=== PATIENT | female | born 1960 | race Caucasian/White ===

== ENCOUNTER 2020-08-14 10:01 | Outpatient (CLI) | payer BC, SELFPAY ==
--- NOTE | ~2020-08-14 | MM_ITS ---
EXAMINATION: MM screening zain BI w ronnie HISTORY: Screening TECHNIQUE: Craniocaudal and mediolateral oblique 3-D tomosynthesis images were obtained and synthetic 2-D images were generated. CAD analysis was submitted and interpreted. COMPARISON: Comparison to multiple prior studies sequentially, with oldest reviewed study dated 07/03. BREAST PARENCHYMAL COMPOSITION: The breasts are extremely dense, which lowers the sensitivity of mamm ography FINDINGS: There is no evidence of suspicious mass, calcification, or architectural distortion to sugg est malignancy in either breast. There has been no suspicious interval change. IMPRESSION: 1. No mammographic evidence of malignancy. 2. Recommend routine screening mammography in one year. BI-RADS Category 1: Negative Reviewed, dictated and finalized at location A.
== END 2020-08-14 10:02 | disposition home or self-care (01) ==
LOC: ANHIMG 10:05
PROVIDERS: PCP Family Medicine; Visit Provider Family Medicine
DX: Z12.31 Encounter for screening mammogram for malignant neoplasm of breast (principal)
CPT/HCPCS: 77063; 77067

== ENCOUNTER → 2020-08-30 07:48 | Outpatient (CLI) | payer BC, SELFPAY ==
[2020-08-30 19:22] LABS: SARS-CoV-2 RNA PCR Negative
== END ==
PROVIDERS: PCP Family Medicine; Visit Provider Internal Medicine Gastroenterology
DX: Z01.812 Encounter for preprocedural laboratory examination (principal); Z20.822 Contact with and (suspected) exposure to COVID-19
CPT/HCPCS: C9803; U0003; U0005

== ENCOUNTER 2020-09-02 00:16 | Day surgery (SDC) | payer BC, SELFPAY ==
[2020-08-22 09:23] VITALS: BMI 24.2
[2020-09-02 09:31] VITALS: BP 109/75; PULSE 65; RESP 18; TEMP 36.4; O2SAT 100; BMI 24.2
--- NOTE | 2020-09-02 09:45 | WPDANESEPPF ---
Anes - Initial Pre Proc Eval Procedure: Operation Date: 09/02/20 10:00 Proposed Procedures p Screening Colonoscopy - Aneudy Wills MD Date/Time: 09/02/20 09:45 Surgeon: Aneudy Wills MD Pre Op Diagnosis: neoplasm screening, hx of colon polyps Patient Data Age: 59 Gender: F Height: 5 ft 6 in Weight: 68 kg Last Vital Signs Temp 36.4 C L 09/02/20 09:31 Pulse 65 09/02/20 09:31 Resp 18 09/02/20 09:31 BP 109/75 09/02/20 09:31 Pulse Ox 100 09/02/20 09:31 Allergies Allergy/AdvReac Type Severity Reaction Status Date / Time No Known Allergies Allergy Mild Verified 09/02/20 09:29 Home Medications Medication Instructions Recorded Confirmed Type levothyroxine 137 mcg tablet 137 mcg PO DAILY #90 tablet 07/02/20 09/02/20 Rx escitalopram oxalate 10 mg PO DAILY 08/22/20 09/02/20 History Patient hx anesthesia problems: none Family hx anesthesia problems: none PMFSH Past Medical History Medical History Adhesive capsulitis of right shoulder External hemorrhoids without mention of complication Female infertility of unspecified origin Fracture of metatarsal bone, closed Marital conflict Menopausal and female climacteric states Patellofemoral arthralgia of right knee Family History Family History Father Depression Asthma Family history of cardiovascular disease Family history of chronic obstructive pulmonary disease Family history of congestive heart failure Patient's father is Mother Depression Family history of malignant neoplasm of breast in first degree relative Carcinoma of colon Other Family history of malignant neoplasm of breast Hypertension Social History Social History Years smoked: 10 Smoking status: Former smoker Tobacco type: cigarettes Smoking end date: 04/12/90 Alcohol intake: current Alcohol use details: socially Substance use: never Substance use type: does not use Living arrangements: with family Gender identity (if verbalized by the patient): Female Spiritual care concerns: No Anes - Eval Final PreProcedure Day of Procedure 09/02/20 09:45 Patient weight: normal Heart: regular rate and rhythm Lungs: clear to auscultation Airway: Mallampati scale class II Neurological: alert and oriented Last oral intake: >/= 8 hours ASA classification: II Emergent: no Anesthetic plan: proceed Anesthesia type and monitoring: general GIVS and standard monitoring Informed Consent: The patient's anesthetic plan and its attendant risks and benefits were discussed with the patient/family/POA. Questions were solicited and answers provided to the satisfaction of the patient/family/POA.
[2020-09-02] MEDS: LACTATED RINGERS 1,000 ML 150 ML IV CONT (09:48)
--- NOTE | 2020-09-02 09:48 | PM.HPGS ---
History of Present Illness History of Present Illness Consent: Risks, benefits, and alternatives have been discussed and questions answered. Patient agrees to proceed with procedure. Chief complaint: neoplasm screening, hx of colon polyps Narrative: Alissa Orr is a 59 year old female for colon cancer screening. She had a polyp removed 6 years ago Review of Systems Review of Systems: All systems reviewed & are unremarkable except as noted in HPI and below PMFSH Past Medical History Medical History Adhesive capsulitis of right shoulder External hemorrhoids without mention of complication Female infertility of unspecified origin Fracture of metatarsal bone, closed Marital conflict Menopausal and female climacteric states Patellofemoral arthralgia of right knee Family History Family History Father Depression Asthma Family history of cardiovascular disease Family history of chronic obstructive pulmonary disease Family history of congestive heart failure Patient's father is Mother Depression Family history of malignant neoplasm of breast in first degree relative Carcinoma of colon Other Family history of malignant neoplasm of breast Hypertension Social History Social History Years smoked: 10 Smoking status: Former smoker Tobacco type: cigarettes Smoking end date: 04/12/90 Alcohol intake: current Alcohol use details: socially Substance use: never Substance use type: does not use Living arrangements: with family Gender identity (if verbalized by the patient): Female Spiritual care concerns: No Meds Home Medications and Allergies Home Medications Medication Instructions Recorded Confirmed Type levothyroxine 137 mcg tablet 137 mcg PO DAILY #90 tablet 07/02/20 09/02/20 Rx escitalopram oxalate 10 mg PO DAILY 08/22/20 09/02/20 History Allergies Allergy/AdvReac Type Severity Reaction Status Date / Time No Known Allergies Allergy Mild Verified 09/02/20 09:29 Vital Signs Vital Signs - 24 hr 09/02/20 09:31 Temperature 36.4 C L Pulse Rate 65 Respiratory Rate 18 Blood Pressure 109/75 Pulse Oximetry 100 Exam Resp: Auscultation: clear to auscultation bilaterally Cardio: Rate: regular rate Rhythm: regular rhythm GI: GI Palp: Yes Soft to palpation and No Tenderness to palpation present (GI) Assessment and Plan Assessment and plan (1) Colon cancer screening: Code(s): Z12.11 - Encounter for screening for malignant neoplasm of colon Status: Acute Assessment and Plan: Colonoscopy with possible biopsy or polypectomy or cautery or injection of substances.
[2020-09-02 10:41] VITALS: BP 93/58; PULSE 66; RESP 21; O2SAT 97
[2020-09-02 10:51] VITALS: BP 99/64; PULSE 60; RESP 17; O2SAT 100
[2020-09-02 11:01] VITALS: BP 95/60; PULSE 59; RESP 17; O2SAT 100
== END 2020-09-02 11:15 | disposition home or self-care (01) ==
PROVIDERS: PCP Family Medicine; Visit Provider Internal Medicine Gastroenterology
PROC: 0DJD8ZZ Inspection of Lower Intestinal Tract, Via Natural or Artificial Opening Endoscopic (ICD-10-PCS; CPT 45378; principal; 2020-09-02 10:00)
DX: Z12.11 Encounter for screening for malignant neoplasm of colon (principal); Z86.010 Personal history of colon polyps; K57.30 Diverticulosis of large intestine without perforation or abscess without bleeding; M75.01 Adhesive capsulitis of right shoulder; M25.561 Pain in right knee; Z87.891 Personal history of nicotine dependence
CPT/HCPCS: 45378; J2704; J7120

== ENCOUNTER 2021-10-08 10:32 | Outpatient (CLI) | payer BC, SELFPAY ==
--- NOTE | ~2021-10-08 | MM_ITS ---
EXAMINATION: MM screening zain BI w ronnie HISTORY: Screening TECHNIQUE: Craniocaudal and mediolateral oblique 3-D tomosynthesis images were obtained and synthetic 2-D images were generated. CAD analysis was submitted and interpreted. COMPARISON: Comparison to multiple prior studies sequentially, with oldest reviewed study dated 07/30. BREAST PARENCHYMAL COMPOSITION: The breasts are extremely dense, which lowers the sensitivity of mamm ography FINDINGS: There is no evidence of suspicious mass, calcification, or architectural distortion to sugg est malignancy in either breast. There has been no suspicious interval change. IMPRESSION: 1. No mammographic evidence of malignancy. 2. Recommend routine screening mammography in one year. BI-RADS Category 1: Negative Reviewed, dictated and finalized at location A.
== END 2021-10-08 10:33 | disposition home or self-care (01) ==
PROVIDERS: PCP Family Medicine; Visit Provider Family Medicine
DX: Z12.31 Encounter for screening mammogram for malignant neoplasm of breast (principal)
CPT/HCPCS: 77063; 77067

== ENCOUNTER → 2022-02-23 11:37 | Outpatient (CLI) | payer BC, SELFPAY ==
--- NOTE | ~2022-02-23 | XR_ITS ---
XR_[id number]_CR DATE: 02/23/2022 12:04 INDICATION: Cervical radiculopathy. Surrounding at the right elbow and wrist TECHNIQUE: AP, open-mouth and lateral views COMPARISON: None FINDINGS: There is straightening and mild reversal cervical curvature, likely due to muscle spasm. C1 and C2 are normally aligned and the odontoid process is intact. There is moderately severe degenerative disc disease and mild retrolisthesis at C3-4. Mild degenerative disc disease at C4-5. There is severe degenerative disc disease and approximately 1.8 mm retrolisthesis at C5-6. Moderately severe degenerative disease and minimal retrolisthesis at C6-7. There is degenerative change at the apophyseal joints and at the uncovertebral joints throughout most of the cervical spine. IMPRESSION: Straightening and mild reversal cervical curvature, suggesting muscle spasm Extensive cervical spondylosis Reviewed, dictated and finalized at [facility]. Reviewed, dictated and finalized at location A. LITATOR IMPRESSION: Straightening and mild reversal cervical curvature, suggesting musc le spasm Extensive cervical spondylosis
== END ==
PROVIDERS: PCP Physician Assistant; Visit Provider Physician Assistant
DX: M47.22 Other spondylosis with radiculopathy, cervical region (principal)
CPT/HCPCS: 72040

== ENCOUNTER 2022-09-24 09:26 | Outpatient (CLI) | payer BC, SELFPAY ==
--- NOTE | 2022-09-24 14:25 | SLEEP ---
Paper documentation exists on this patient due to [facility] System downtime on 09/23/22 from to [[id number]] .
--- NOTE | 2022-10-03 14:14 | WPDHOMESLEEP ---
Sleep Study - Home Unattended Date of Study: 09/23/22 Ordering Provider: Katey Andrew MD Interpreting Provider: Destiny Villegas MD Home Sleep Study Type: David THOMAS Height: 1.68 m Weight: 70.307 kg Body Mass Index: 25.0 Neck Circumference (inches): 14.75 [place]: 4 Reason for Sleep Study Daytime hypersomnia, difficulty falling asleep, snoring, witnessed apneic episodes. Sleep History Alissa Orr is a 61-year-old female who underwent a home sleep test ordered by her primary care provider for evaluation of daytime hypersomnia. She never awakens from sleep short of breath. She occasionally snores and occasionally snores loudly enough that others complain. She does not have trouble sleeping when she has a cold. She never wakes up gasping for breath during the night. She never has breathing problems at night. She never sweats excessively at night. She never notices her heart pounding or beating irregularly during the night. She never falls asleep during the day, involuntarily, or while driving. She never experiences loss of muscle tone with strong emotion. She does not have trouble at school or work because of sleepiness. She never feels paralyzed on waking or falling asleep. She constantly experiences vivid dreams upon waking or falling asleep. She does not feel afraid of going to sleep. She frequently has nightmares. She frequently recalls her dreams. She frequently has thoughts racing through her mind. She rarely feels sad or depressed. She occasionally feels anxiety or worry about things. She does not notice parts of her body jerk. She never kicks during the night. She never feels crawling or aching feelings in her legs. She does not feel bothered by pain during the day and is not awakened by pain during the night. She does not wake up feeling stiff, sore, or achy in the morning. She has not had a weight change in the last year. Normal bedtime is around 10pm on the weekdays and between 10 or 11pm on the weekends. She typically gets about 8 to 10 hours of sleep per night. Her wake up time is around 9am on the weekdays and between 9 to 10am on the weekends. She typically wakes up around 2 to 3 times per night, sometimes awake for awhile before falling back to sleep. She naps at times, but a short nap lasting 10-15 minutes is not refreshing. Habits: Former tobacco smoker. Caffeine use is about 2 cups of coffee per day. She drinks a couple of alcoholic drinks per week. No recreational substance use. [facility] Past Medical History Medical History Adhesive capsulitis of right shoulder External hemorrhoids without mention of complication Female infertility of unspecified origin Fracture of metatarsal bone, closed GERD with esophagitis Marital conflict Menopausal and female climacteric states Patellofemoral arthralgia of right knee Surgical History Surgical History Hx of colonoscopy 5.4.21 Family History Family History Father Depression Asthma Family history of cardiovascular disease Family history of chronic obstructive pulmonary disease Family history of congestive heart failure Patient's father is Mother Depression Family history of malignant neoplasm of breast in first degree relative Carcinoma of colon Sibling Hypertension Other Family history of malignant neoplasm of breast Social History Social History Years smoked: 10 Smoking status: Former smoker Tobacco type: cigarettes Smoking end date: 04/12/90 Alcohol intake: current Alcohol use details: socially Substance use: never Substance use type: does not use Living arrangements: with family Gender identity (if verbalized by the patient): Female Spiritual care concerns: No Medications Home
[2022-10-03 15:22] VITALS: BMI 25.0
== END 2022-09-24 14:29 | disposition home or self-care (01) ==
LOC: ANHCSM 09:27
PROVIDERS: PCP Physician Assistant; Visit Provider Family Medicine
DX: R06.81 Apnea, not elsewhere classified (principal); R06.83 Snoring
CPT/HCPCS: 95800

== ENCOUNTER 2023-02-17 15:02 | Outpatient (CLI) | payer BC, SELFPAY ==
--- NOTE | ~2023-02-17 | MM_ITS ---
EXAMINATION: MM screening zain BI w ronnie HISTORY: Screening TECHNIQUE: Craniocaudal and mediolateral oblique 3-D tomosynthesis images were obtained and synthetic 2-D images were generated. CAD analysis was submitted and interpreted. COMPARISON: Comparison to multiple prior studies sequentially, with oldest reviewed study dated 06/2015. BREAST PARENCHYMAL COMPOSITION: The breasts are heterogeneously dense, which may obscure small masses FINDINGS: There is no evidence of suspicious mass, calcification, or architectural distortion to sugg est malignancy in either breast. There has been no suspicious interval change. IMPRESSION: 1. No mammographic evidence of malignancy. 2. Recommend routine screening mammography in one year. BI-RADS Category 1: Negative Reviewed, dictated and finalized at location A. ATICIZER FEEDER
== END 2023-02-17 15:03 | disposition home or self-care (01) ==
LOC: ANHIMG 15:05
PROVIDERS: PCP Family Medicine; Visit Provider Family Medicine
DX: Z12.31 Encounter for screening mammogram for malignant neoplasm of breast (principal)
CPT/HCPCS: 77063; 77067

== ENCOUNTER 2024-03-22 14:13 | Outpatient (CLI) | payer BC, SELFPAY ==
--- NOTE | ~2024-03-22 | MM_ITS ---
EXAMINATION: MM screening zain BI w ronnie HISTORY: Screening TECHNIQUE: Craniocaudal and mediolateral oblique 3-D tomosynthesis images were obtained and synthetic 2-D images were generated. CAD analysis was submitted and interpreted. COMPARISON: Comparison to multiple prior studies sequentially, with oldest reviewed study dated 10/26. BREAST PARENCHYMAL COMPOSITION: Dense: The breasts are extremely dense, which lowers the sensitivity of mammography. FINDINGS: There is no evidence of suspicious mass, calcification, or architectural distortion to sugg est malignancy in either breast. There has been no suspicious interval change. IMPRESSION: 1. No mammographic evidence of malignancy. 2. Recommend routine screening mammography in one year. BI-RADS Category 1: Negative Reviewed, dictated and finalized at location B. FARMWORKER
== END 2024-03-22 14:14 | disposition home or self-care (01) ==
LOC: ANHIMG 14:14
PROVIDERS: PCP Family Medicine; Visit Provider Family Medicine
DX: Z12.31 Encounter for screening mammogram for malignant neoplasm of breast (principal)
CPT/HCPCS: 77063; 77067

== ENCOUNTER 2024-09-11 10:44 | Outpatient (CLI) | payer BC, SELFPAY ==
--- NOTE | ~2024-09-11 | US_ITS ---
Pelvic ultrasound. Clinical History: Abdominal distention Technique: Realtime transabdominal and transvaginal scanning of the pelvis was performed. Color flow Doppler and Doppler spectral analysis were performed. Findings: The uterus is anteverted. The endometrial stripe has a thickness of 2 mm. No focal mass is identified. The right ovary measures 2.3 x 1.1 x 1.5 cm. No significant right ovarian or adnexal mass is seen. The left ovary is not visualized. No significant left ovarian or adnexal mass is seen. There is no evidence of free fluid in the cul de sac. Impression: No significant abnormality seen. Left ovary not visualized. Reviewed, dictated and finalized at location . Impression: No significant abnormality seen. Left ovary not visualized.
== END 2024-09-11 10:45 | disposition home or self-care (01) ==
LOC: MICIMG 10:45
PROVIDERS: PCP Family Medicine; Visit Provider Family Medicine
DX: R14.0 Abdominal distension (gaseous) (principal)
CPT/HCPCS: 76830; 76856

== ENCOUNTER 2025-03-26 13:18 | Outpatient (CLI) | payer BC, SELFPAY ==
--- NOTE | ~2025-03-26 | MM_ITS ---
EXAMINATION: MM screening zain BI w ronnie HISTORY: Screening TECHNIQUE: Craniocaudal and mediolateral oblique 3-D tomosynthesis images were obtained and synthetic 2-D images were generated. CAD analysis was submitted and interpreted. COMPARISON: Comparison to multiple prior studies sequentially, with oldest reviewed study dated , 03/28/2019 BREAST PARENCHYMAL COMPOSITION: Dense: The breasts are heterogeneously dense, which may obscure small masses. FINDINGS: There is no evidence of suspicious mass, calcification, or architectural distortion to suggest malignancy in either breast. IMPRESSION: 1. No mammographic evidence of malignancy. 2. Recommend routine screening mammography in one year. BI-RADS Category 1: Negative Reviewed, dictated and finalized at location A. F REPORTER
== END 2025-03-26 13:19 | disposition home or self-care (01) ==
LOC: ANHFOHIMG 13:18
PROVIDERS: PCP Family Medicine; Visit Provider Family Medicine
DX: Z12.31 Encounter for screening mammogram for malignant neoplasm of breast (principal)
CPT/HCPCS: 77063; 77067